=== PATIENT | female | born 1975 | race Caucasian/White ===

== ENCOUNTER 2022-08-24 10:29 | Emergency (ER) | payer BC ==
[~2022-08-24] VITALS: Ht 165.1 cm; Wt 79.4 kg
[2022-08-24 10:42] VITALS: BP 140/105
[2022-08-24] MEDS ORDERED: KETOROLAC 60 MG/2 ML VIAL IM ONE (11:20)
--- NOTE | 2022-08-24 11:27 | NUR ---
PT WALKED TO ROOM 3 WITH CO ABD PAIN ON LUQ X6 DAYS. NO FURHTER CO.
--- NOTE | 2022-08-24 11:33 | NUR ---
US BEDSIDE FOR PT.
[2022-08-24 12:14] LABS: BASOPHILS # (AUTO) 0.1 K/uL (0.00-0.22); BASOPHILS % (AUTO) 0.8 % (0.0-2.0); EOSINOPHILS % (AUTO) 0.3 % (0.0-4.0); HEMATOCRIT 40.9 % (36-48); HEMOGLOBIN 13.8 g/dL (12.0-16.0); LYMPHOCYTES % (AUTO) 13.8 % (20.5-51.1); MEAN CORPUSCULAR HEMOGLOBIN 32 pg (27-31); MEAN CORPUSCULAR HGB CONC 34 g/dL (33-37); MEAN CORPUSCULAR VOLUME 95.4 fL (80-94); MONOCYTES # (AUTO) 1.4 K/uL (0.8-1.0); MONOCYTES % (AUTO) 9.4 % (1.7-9.3); NEUTROPHILS % (AUTO) 75.7 % (42.2-75.2); PLATELET COUNT (AUTO) 237 K/uL (140-450); RED BLOOD CELL COUNT(AUTO) 4.29 MIL/uL (4.20-5.40); RED CELL DISTRIBUTION WIDTH 13.6 % (11.6-13.7); WHITE BLOOD COUNT (AUTO) 14.6 K/uL (4.8-10.8)
--- NOTE | 2022-08-24 12:24 | NUR ---
US DONE BEDSIDE. TORADOL GIVEM IM NOW.
[2022-08-24 12:32] LABS: ALBUMIN 2.7 g/dL (3.4-5.0); ANION GAP 12.1 (8-16); CARBON DIOXIDE 23.8 mmol/L (21-32); POTASSIUM 3.9 mmol/L (3.5-5.1); TOTAL BILIRUBIN 0.8 mg/dL (0.0-1.0)
[2022-08-24] MEDS ORDERED: cefTRIAXone 1,000 MG in LIDOCAINE MPF 1% 2.1 ML IM ONE (14:30)
[2022-08-24] MEDS ORDERED: cefTRIAXone 1,000 MG VIAL ONE (14:33)
[2022-08-24] MEDS ORDERED: LIDOCAINE MPF 1% 5 ML ONE (14:34)
--- NOTE | 2022-08-24 14:46 | NUR ---
URINE COLLECTED AND SENT TO LAB.
[2022-08-24] MEDS ORDERED: TRAM50TA1 PO (14:50)
[2022-08-24] MEDS ORDERED: DOXY-487 PO (14:50)
[2022-08-24 14:56] LABS: APPEARANCE,URINE CLEAR (CLEAR); BILIRUBIN,URINE NEGATIVE (NEGATIVE); BLOOD, URINE NEGATIVE (NEGATIVE); COLOR,URINE BROWN (YELLOW); LEUKOCYTE ESTERASE ,URINE TRACE (NEGATIVE); NITRITE, URINE NEGATIVE (NEGATIVE); UGLUCOSE NEGATIVE (NEGATIVE)
--- NOTE | 2022-08-24 15:02 | NUR ---
Patient discharged with v/s stable. Written and verbal after care instructions given and explained. Patient alert, oriented and verbalized understanding of instructions. Ambulatory with steady gait. All questions addressed prior to discharge. ID band removed. Patient advised to follow up with PMD. Rx of DOCICYCLINE AND TRAMADOL given. Patient educated on indication of medication including possible reaction and side effects. Opportunity to ask questions provided and answered.
[2022-08-24 15:10] VITALS: BP 134/78
[2022-08-24 15:11] LABS: OTHER CASTS, URINE None Seen /LPF (None Seen); RBC,URINE 0-5 /HPF (0-5); WBC,URINE 0-5 /HPF (0-5)
== END 2022-08-24 15:02 | disposition home or self-care (01) ==
LOC: MED 10:29
DX: R10.11 Right upper quadrant pain (principal); D72.829 Elevated white blood cell count, unspecified; Z79.899 Other long term (current) drug therapy
CPT/HCPCS: 36415; 74176; 76700; 80053; 81001; 82150; 83690; 84703; 85025; 87491; 96372; 99285; J0696; J1885; J2001; Q0092